=== PATIENT | male | born 1955 | race Caucasian/White ===

== ENCOUNTER 2018-01-22 10:46 | Emergency (ER) | payer BC ==
[2018-01-22 12:21] VITALS: BP 154/93
--- NOTE | 2018-01-22 12:38 | UC ---
Skin Complaint HPI - HPI Summary HPI Summary: 62 year old male with tick bite exposure . PT REMOVED A TICK FROM HIS LEFT UPPER ARM LAST ThursdayDecember. PT IS NOT SURE HOW LONG TICK WAS ATTACHED. TICK SITE IS RED AND ITCHY. DENIES BODY ACHES. CHILLS OR FEVER. his friends have Lyme so he is worried. tick on him for < 12 hours . noticed the area became itchy and red the past few days and slightly worsened. he is worried about infection and also allergy reaction. no SOB no wheeze. has not used OTC meds. [ End ] - History of Current Complaint Chief Complaint: UCSkin Time Seen by Provider: 01/22/18 12:19 Stated Complaint: TICK BITE Hx Obtained From: Patient Onset/Duration: Gradual Onset Timing: Constant Pain Intensity: 0 Aggravating Factor(s): Nothing Alleviating Factor(s): Nothing Related History: Insect Bite/Sting - Allergy/Home Medications Allergies/Adverse Reactions: Allergies Allergy/AdvReac Type Severity Reaction Status Date / Time No Known Allergies Allergy Verified 01/22/18 12:11 Home Medications: Home Medications Calcium Carbonate [Calcium] 500 mg PO DAILY 01/22/18 [History Confirmed 01/22/18 ] Cholecalciferol TAB* [Vitamin D TAB*] 1,000 unit PO DAILY 01/22/18 [History Confirmed 01/22/18] Multivitamin [Multivitamins] 1 cap PO DAILY 01/22/18 [History Confirmed 01/22/18 ] Simvastatin [Zocor] 20 mg PO DAILY 01/22/18 [History Confirmed 01/22/18] Review of Systems Constitutional: Negative Skin: Other - redness All Other Systems Reviewed And Are Negative: Yes PMH/Surg Hx/FS Hx/Imm Hx Previously Healthy: Yes Endocrine History: Dyslipidemia - Surgical History Surgical History: None - Social History Occupation: Employed Full-time Lives: With Family Alcohol Use: Daily Alcohol Amount: COUPLE BEERS AT NIGHT Substance Use Type: None Smoking Status (MU): Never Smoked Tobacco Physical Exam Triage Information Reviewed: Yes Appearance: Well-Appearing, No Pain Distress, Well-Nourished Vital Signs: Initial Vital Signs Temp 98.6 F 01/22/18 12:12 Pulse 71 01/22/18 12:12 Resp 16 01/22/18 12:12 BP 154/93 01/22/18 12:12 Pulse Ox 100 01/22/18 12:12 Vital Signs Reviewed: Yes Eye Exam: Normal ENT Exam: Normal Dental Exam: Normal Neck exam: Normal Neck: Positive: 1 Respiratory Exam: Normal Cardiovascular Exam: Normal Musculoskeletal Exam: Normal Neurological Exam: Normal Psychological Exam: Normal Skin Exam: Normal Skin: Positive: Other - right posterior upper extemity caudal to the axilla with area of raised redness. no EM. no streaking. center with insect bite evident no tick or insect present. area of elevated redness 2x2 cm. no streaking. no bruising. Course/Dx - Course Course Of Treatment: appears to be possible to be allergic reaction from the bite with the raised red hive like area. -- he will use OTC meds for this. he has concern for skin infection and hypersensitive to lyme and asking to be treated. for the much stronger possibility that this is not EM / Lyme will treat as bacterial skin infection and to ensure no concern for lyme use doxy. he is aware of SE like potential for photosensitivity rash and will dress accordingly. RTO if any concerns - Differential Diagnoses - Skin Complaint Differential Diagnoses: Tick Born Illness - Diagnoses Provider Diagnoses: 1. Tick bite. 2. elevated blood pressure Discharge - Sign-Out/Discharge Documenting (check all that apply): Discharge/Admit/Transfer - Discharge Plan Condition: Good Disposition: HOME Prescriptions: Doxycycline Hyclate 100 mg PO BID 10 Days #20 tablet Patient Education Materials: Tick Bite (ED), Cellulitis (ED) Referrals: El Grier MD [Primary Care Provider] - 4 Days Additional Instructions: As we discussed you can use topical steroids and antihistamines for the itch as well. If you have any concerns for Lyme please seek medical attn or testing with your primary care physician - Billing Disposition and Condition Condition: GOOD Disposition: HOME
== END 2018-01-22 12:55 | disposition home or self-care (01) ==
LOC: UCCORT 10:46
DX: S40.862A Insect bite (nonvenomous) of left upper arm, initial encounter (principal); W57.XXXA Bitten or stung by nonvenomous insect and other nonvenomous arthropods, initial encounter; Y93.9 Activity, unspecified; Y92.9 Unspecified place or not applicable; R03.0 Elevated blood-pressure reading, without diagnosis of hypertension; E78.5 Hyperlipidemia, unspecified
CPT/HCPCS: 99202; G0463

== ENCOUNTER 2019-08-05 09:25 | Emergency (ER) | payer BC ==
--- OUTSIDE RECORDS SUMMARY | 2019-08-05 09:50 | XMS REPORT | Continuity of Care Document ---
:1955 External Reference #:[id number] Author Name El Grier (transmitted by agent of provider Tereza Laboy) Address [address] [place] [address] Problems Description No Information Available Social History Type Date Description Comments Sex Unknown Tobacco Use Start: Unknown Never Smoked Cigarettes ETOH Use Currently consumes alcohol ETOH Use Consumes 4 beers per day Recreational Drug Use Denies Drug Use Tobacco Use Start: Unknown Patient has never smoked Smoking Status Reviewed: 11/06/17 Patient has never smoked Seat Belt/Car Seat Always uses seat belt Allergies, Adverse Reactions, Alerts Description No Known Drug Allergies Medications Active Medications SIG Qnty Indications Ordering Provider Date Simvastatin 1 by mouth 90tabs El Grier 04/07/2018 40mg every day Tablets Calcium 600+D High 1 by mouth 100tabs M85.80 El Grier 12/16/2016 Potency twice a day [id number] Tablets Vitamin D High 1 by mouth 100caps M85.80 El Grier 12/16/2016 Potency every day 1000Unit Capsules Multi For Him 50+ daily Unknown Tablets Immunizations CPT Code Status Date Vaccine Lot # [id number] Given 05/31/2019 Influenza Virus Vaccine, Quadrivalent, Split, Preservative Free 52234 Given 05/31/2019 Influenza Virus Vaccine, Quadrivalent, Split, Preservative Free 17392 Given 11/11/2016 Pneumococcal Conjugate Vaccine 13 Valent For Intramuscular Use 41552 Given 04/06/[address] [place] [address] Given 04/06/2012 Tetanus,Diphtheria,Adut/Adol Pertussis Vital Signs Date Vital Result Comment 06/14/2019 12:03pm BP Systolic 146 mmHg BP Diastolic 82 mmHg Heart Rate 88 /min Respiratory Rate 16 /min Height 71.5 inches 5'11.50" Weight 218.00 lb BMI (Body Mass Index) 30.0 kg/m2 O2 % BldC Oximetry 97 % 05/31/2019 11:29am BP Systolic 160 mmHg BP Diastolic 80 mmHg Heart Rate 99 /min Height 70.75 inches 5'10.75" Weight 212.00 lb BMI (Body Mass Index) 29.8 kg/m2 O2 % BldC Oximetry 98 % Results Test Date Facility Test Result H/L Range Note Autoimmune 06/02/2019 [facility] Loli Screen, Negative Negative [address] [facility] [place] [address] [phone] Liver Kidney Microsomal (LKM-1) AB (Igg) <=20.0 U <=20.0 2 Mitochondrial AB Screen Negative Negative Actin (Smooth Muscle) Antibody (Igg) <20 U <20 3 Hepatitis 06/02/2019 [facility] Hepatitis A NON-REACTIVE Normal Non -Reactive 4 Panel, [address] [place] [place] [address] W/Reflex To [phone] [facility] Hepatitis B Surface Antigen NON-REACTIVE Normal Non-Reactive Hepatitis B Core Antibody (Igm) NON-REACTIVE Normal Non-Reactive Hepatitis C Antibody NON-REACTIVE Normal Non-Reactive Signal To Cut-Off 0.01 Normal <1.00 5 Laboratory test 06/02/2019 [facility] Enhanced PDF SEE IMAGE finding [address] [address] [id number] [phone] Lipid Panel 04/01/2019 Old DO Not Use [facility] Cholesterol 195 mg/dL < [address] [place], [place] [id number] [phone] HDL Cholesterol 73 mg/dL >40 Cholesterol/HDL Ratio 2.7 CALC <5.0 LDL Chol,Calculated 107 mg/dL High 0-100 7 Triglycerides 63 mg/dL <150 Non-HDL Cholesterol 122 mg/dL <130 8 General Health Panel 04/01/2019 Old DO Not Use [facility] TSH 1.49 mIU/L 0.40-4.[address] [facility] [address] [place] [address] [phone] T4,Free 1.2 ng/dL 0.8-1.8 CBC W/ Diff & PLT 04/01/2019 Old DO Not Use [facility] WBC 6.4 thous/L 3.8-10.8 [address] [facility] [place] [address] [phone] RBC 4.87 mill/L 4.20-5.80 Hemoglobin 15.5 g/dL 13.2-17.1 Hematocrit 46.8 % 38.5-50.0 MCV 96.1 FL 80.0-100.0 MCH 31.8 pg 27.0-33.0 MCHC 33.1 g/dL 32.0-36.0 RDW 12.3 % 11.0-15.0 Platelet Count 235 thous/L 140-400 MPV 10.2 FL 7.5-12.5 Neutrophils,Absolute 4300 cells/L 5928-2879 Bands,Absolute PENDING Metamyelocytes,Absolute PENDING Myelocytes,Absolute PENDING Promyelocytes,Absolute PENDING Lymphocytes,Absolute 1350 cells/L 850-3900 Monocytes,Absolute 530 cells/L 200-950 Eosinophils,Absolute 170 cells/L 15-500 Basophils,Absolute 10 cells/L 0-200 Blast Cells,Absolute PENDING Nucleated RBC,Absolute PENDING Total Neutrophils,% 67.7 % 40-75 Bands,% PENDING Metamyelocytes,% PENDING Myelocytes,% PENDING Promyelocytes,% PENDING Total Lymphocytes,% 21.1 % 12-47 Reactive Lymphocytes PENDING Monocytes,% 8.3 % 4-12 Eosinophils,% 2.7 % 0-4 Basophils,% 0.2 % 0-1 9 Blasts,% PENDING Nucleated RBC PENDING Comment PENDING CMP W/GFR 04/01/2019 Old DO Not Use [facility] Sodium 137 mmol/L 135-[address] [place] [address] [phone] Potassium 4.8 mmol/L 3.5-5.3 Chloride 101 mmol/L 98-110 Carbon Dioxide 28 mmol/L 20-32 10 Calcium 9.9 mg/dL 8.6-10.3 Alkaline Phosphatase 101 U/L 40-115 Ast 36 U/L High 10-35 Alt 81 U/L High 9-46 Bilirubin,Total 0.7 mg/dL 0.2-1.2 Glucose 106 mg/dL High 65-99 11 Urea Nitrogen (BUN) 17 mg/dL 7-25 Creatinine 0.85 mg/dL 0.70-1.25 12 BUN/Creatinine Ratio 19.9 6-22 Protein,Total 7.1 g/dL 6.1-8.1 Albumin 4.8 g/dL 3.6-5.1 Globulin,Calculated 2.3 g/dL 1.9-3.7 A/G Ratio 2.0 1.0-2.5 Egfr Non-Afr. Citizen Of [place] 93 ML/MIN/1.73M2 > Or = 60 Egfr 107 ML/MIN/1.73M2 > Or = 60 Laboratory test 04/01/2019 Old DO Not Use [facility] Esr,Westergren 2 MM/HR 0-[address] [place], [place] [address] [phone] Uric Acid 6.3 mg/dL 4.0-8.0 13 Rheumatoid Factor 04/01/2019 Old DO Not Use [facility] Rheumatoid Factor <5 U <=6 (Iga,Igg,Igm) [address] (Igg) [place] [address] [phone] Rheumatoid Factor (Iga) <5 U <=6 Rheumatoid Factor (Igm) <5 U <=6 Laboratory test 04/01/2019 Old DO Not Use [facility] PSA,Total 0.7 NG/ML < Or = 4.0 [address] [place] [address] [phone] Testosterone,Total,MS 403 ng/dL 250-1100 15 1 LOLI IFA is a first line screen for detecting the presence of up to approximately 150 autoantibodies in various autoimmune diseases. A negative LOLI IFA result suggests LOLI-associated autoimmune disease is not present at this time, but is not definitive. If there is high clinical suspicion for Sjogren's Syndrome, testing for anti-SS-A/Ro antibody should be considered. Anti-Lorie-1 antibody should be considered for clinically suspected inflammatory myopathies. AC-0: Negative International Consensus on LOLI Patterns https://doi.org/10.1515/thlq-0293-5779 For additional information, please refer to http://education.[employer]/faq/QYH541 (This link is being provided for informational/ educational purposes only.) 2 Reference Range: <=20.0 Negative 20.1-24.9 Equivocal >=25.0 Positive Anti-liver/kidney microsomal antibodies (Anti-LKM-1) were previously tested by indirect immunofluorescence (IF) using rodent liver/kidney substrate. Identification of a specific antibody target as cytochrome P450 IID6 has led to the current recombinant based STELLA. Antibodies to this cytochrome are present in approximately 70% of patients with autoimmune hepatitis type 2. This antibody is also present in approximately 10% of patients with hepatitis C infection. 3 Reference Range: <20 U: Negative >or=20 U: Positive Antibodies recognizing actin are the main component of smooth muscle antibodies associated with auto- immune liver disease. Actin antibodies are found in approximately 75% of patients with autoimmune hepatitis (AIH) type 1, approximately 65% of patients with autoimmune cholangitis, approximately 30% of patients with primary biliary cirrhosis and approximately 2% of healthy controls. High values are closely correlated with AIH type 1. 4 For additional information, please refer to http://Y[employer]/faq/CYR942 (This link is being provided for informational/ educational purposes only.) 5 HCV antibody was non-reactive. There is no laboratory evidence of HCV infection. In most cases, no further action is required. However, if recent HCV exposure is suspected, a test for HCV RNA (test code 46535) is suggested. For additional information please refer to http://Yab[employer]/faq/ZLW37x5 (This link is being provided for informational/ educational purposes only.) 6 FASTING 7 LDL-C is now calculated using the Torsten-Portillo calculation, which is a validated novel method providing better accuracy than the Friedewald equation in the estimation of LDL-C. Torsten SS et al.CODI.2013;310(19):0870-5454 Desirable range <100 mg/dL for primary prevention; <70 mg/dL for patients with CHD or diabetic patients with >or= 2 CHD risk factors. 8 For patients with diabetes plus 1 major ASCVD risk factor, treating to a non-HDL-C goal of <100 mg/dL (LDL-C of <70 mg/ dL) is considered a therapeutic option. 9 Relative blood cell counts (%) should be compared with absolute cell counts (cells/mcL). Relative counts may not be clinically meaningful if the absolute count of one or more cell type is decreased. Reference ranges for relative cell counts derived from: A Manual of Laboratory and Diagnostics Tests, 9th Ed, Marybeth Nathan & Covarr[employer]ias, 2015. Pediatric Reference Intervals, 7th Ed, [facility], 2011. 10 Reference range for high altitude clients: 18-30 mmol/L 11 GLUCOSE REFERENCE RANGE BASED ON FASTING SPECIMEN. 12 The upper reference limit for Creatinine is approximately 13% higher for people identified as -Citizen Of [place]. 13 Therapeutic target for gout patients: <6.0 mg/dL 14 The total PSA value from this assay system is standardized against the WHO standard. The test result will be approximately 20% lower when compared to the equimolar-standardized total PSA (Mack Patricio). Comparison of serial PSA results should be interpreted with this fact in mind. This test was performed using the Siemens chemiluminescent method. Values obtained from different assay methods be used interchangeably. PSA levels, regardless of value, should not be interpreted as absolute evidence of the presence or absence of disease. 15 Men with clinically significant hypogonadal symptoms and testosterone values repeatedly in the range of the 200-300 ng/dL or less, may benefit from testosterone treatment after adequate risk and benefits counseling. For additional information, please refer to http://education.[employer]/faq/ OvgumIpqjmgdojclrIAIAMCURZ066 (This link is being provided for informational/ educational purposes only.) This test was developed and its analytical performance characteristics have been determined by [employer] [place], [place]. It has not been cleared or approved by the U.S. Food and Drug Administration. This assay has been validated pursuant to the CLIA regulations and is used for clinical purposes. Procedures Date Code Description Status 05/17/2019 47291 Non-Invcorrotid/Comp /Bilat Study Completed 05/16/2019 94404 Echocardiography Completed 04/01/2019 54795 Spirometry Graphic Record/Max Voluntary Vent Completed 04/01/2019 11042 PVR-Atrerial Study Completed 04/01/2019 00018 EKG-Tracing & Report Completed 03/28/2019 42759 Holter Monitor Office Completed 11/27/2016 [id number] Bone Mineral Density Test Completed 06/24/2010 55606690 Colonoscopy Completed Medical Devices Description No Information Available Encounters Type Date Location Provider Dx Diagnosis Office Visit 05/31/2019 11:30a Main Office Mahin Grierl K73.9 Chronic hepatitis, unspecified I65.23 Occlusion and stenosis of bilateral carotid arteries I34.0 Nonrheumatic mitral (valve) insufficiency E78.49 Other hyperlipidemia R73.01 Impaired fasting glucose I11.9 Hypertensive heart disease without heart failure N40.0 Benign prostatic hyperplasia without lower urinry tract symp R01.1 Cardiac murmur, unspecified Z23 Encounter for immunization Office Visit 02/02/2019 11:45a Main Office Mahin Grierl I65.23 Occlusion and stenosis of bilateral carotid arteries I34.0 Nonrheumatic mitral (valve) insufficiency E78.5 Hyperlipidemia, unspecified R73.01 Impaired fasting glucose M15.9 Polyosteoarthritis, unspecified R53.82 Chronic fatigue, unspecified I11.9 Hypertensive heart disease without heart failure N40.0 Benign prostatic hyperplasia without lower urinry tract symp Assessments Date Code Description Provider 05/31/2019 K73.9 Chronic hepatitis, unspecified Marvel, El 05/31/2019 I65.23 Occlusion and stenosis of bilateral carotid arteries Marvel , El 05/31/2019 I34.0 Nonrheumatic mitral (valve) insufficiency Gaangel, El 05/31/2019 E78.49 Other hyperlipidemia Marvel, El 05/31/2019 R73.01 Impaired fasting glucose Marvel, El 05/31/2019 I11.9 Hypertensive heart disease without heart failure Gauss, El 05/31/2019 N40.0 Benign prostatic hyperplasia without lower urinary Gauss, El tract symptoms 05/31/2019 R01.1 Cardiac murmur, unspecified Gauss, El 05/31/2019 Z23 Encounter for immunization Marvel, El 05/17/2019 I65.23 Occlusion and stenosis of bilateral carotid arteries Gaangel , El 05/16/2019 I34.0 Nonrheumatic mitral (valve) insufficiency Gauss, El 04/01/2019 E78.2 Mixed hyperlipidemia Marvel, El 04/01/2019 I73.9 Peripheral vascular disease, unspecified Gauss, El 04/01/2019 R06.02 Shortness of breath Gaangel, El 04/01/2019 J44.9 Chronic obstructive pulmonary disease, unspecified Gauss, El 04/01/2019 R05 Cough Gauss El 03/28/2019 R00.2 Palpitations Mahin Grierl 02/02/2019 I65.23 Occlusion and stenosis of bilateral carotid arteries Mahin Grierl 02/02/2019 I34.0 Nonrheumatic mitral (valve) insufficiency Mahin Grierl 02/02/2019 E78.5 Hyperlipidemia, unspecified Marvel, El 02/02/2019 R73.01 Impaired fasting glucose Mahin Grierl 02/02/2019 M15.9 Polyosteoarthritis, unspecified Marvel, El 02/02/2019 R53.82 Chronic fatigue, unspecified Mahin Grierl 02/02/2019 I11.9 Hypertensive heart disease without heart failure Mahin Grierl 02/02/2019 N40.0 Benign prostatic hyperplasia without lower urinary El Grier tract symptoms Plan of Treatment 05/31/2019 - Mahin GrierK73.9 Chronic hepatitis, rarvtwkcfvtD34.23 Occlusion and stenosis of bilateral carotid arteriesComments:Discussed role of life style choices in dietary fats and exercise plays on evolution of [place] tribe disease and importance of controlling cholesterol. Medications role and side effects in disease progression prevention discussed and need for compliance with prescribed treatment. Follow up testing for progression such as ultrasound surveillance ckrsplffQ20.0 Nonrheumatic mitral (valve) insufficiencyComments: Issues of symptoms and aggravating lifestyle factors such as sleep, stress and dietary choices discussed. Symptoms and medication treatment and compliance and side effects discussed as needed. Need forSBE prophalaxis with antibiotics addressed and discussed where indicated. Follow up Echocardiogram as required.Discussed valvular pathology and need if indicated for antibiotic prophylaxis to prevent S.B.E. Medication compliance and side effects issues addressed. Follow up echocardiogram as warranted.Results of 2D echo and other testing reviewed and discussed with patient possible etiologies, progression prognosis and need for prophylactic antibiotics before dental procedures if warranted for S.B.E. prophylaxis. Routine follow up/ surveillance planned.E78.49 Other [id number] Impaired fasting glucoseComments:diet and pbwdmrzQ99.9 Hypertensive heart disease without heart failureComments:CONT. TO MONITOR BP, CONT. LOW SALT DIET Discussed lifestyle factors and role of diet and excerns incontrol of disease and treatment goals and targets. Medication side effects and compliance issues addressed as indicated. The importance of ongoing self monitoring of BP and the symptoms of complications such as TIA, CVA and AMI reviewed. The importance of reporting changes in between visits and side effects stressed. monitoring of patient provided BP checks and laboratory tests related to medicationreviewed. Discussed lifestyle factors and role of diet and excerns in control of disease and treatment goals and targets. Medication side effects and compliance issues addressed as indicated. The importance of ongoing self monitoring of BP and the symptoms of complications such as TIA, CVA and AMI reviewed. The importance of reporting changes in between visits and side effects stressed. monitoring of patient provided BP checks and laboratory tests related to medication reviewed.N40.0 Benign prostatic hyperplasia without lower urinary tract symptomsComments:yearly digital examyearly psaSymptoms and signs reviewed and therapy such as medication , vitamins, diet supplements and their risks and benefits discussed. Symptom progression and referral to urology as appropriate for symptom progression and severity discussed and ordered. The importance of medication compliance when appropriate discussed and the effects of other medications such as antihistamines and OTC cold medicines considered and discussed with patient. Lab work as appropriate and follow up symptomatically and with JASE yearly arrangedyearly digital examyearly psaSymptoms and signs reviewed and therapy such as medication, vitamins, diet supplements and their risks and benefits discussed. Symptom progression and referral to urology as appropriate for symptom progression and severity discussedand ordered. The importance of medication compliance when appropriate discussed and the effects of other medications such as antihistamines and OTC cold medicines considered and discussed with patient.Lab work as appropriate and follow up symptomatically and with JASE yearly trtdynisY26.1 Cardiac murmur, unspecifiedComments:2D [id number] Encounter for immunization Functional Status Description No Information Available Mental Status Description No Information Available Referrals Description No Information Available
--- OUTSIDE RECORDS SUMMARY | 2019-08-05 09:50 | XMS REPORT | Continuity of Care Document ---
:1955 External Reference #:[id number] Author Name El Grier (transmitted by agent of provider Mami Baig) Address [address] [place] [address] Problems Description No Information Available Social History [...] El Grier 12/16/2016 Potency twice a day [id number] Tablets Vitamin D High 1 by mouth 100caps M85.80 El Grier 12/16/2016 Potency every day 1000Unit Capsules Multi For Him 50+ daily Unknown Tablets Immunizations CPT Code Status Date Vaccine Lot # 27688 Given 05/31/2019 Influenza Virus Vaccine, Quadrivalent, Split, Preservative Free 63616 Given 05/31/2019 Influenza Virus Vaccine, Quadrivalent, Split, Preservative Free 66002 Given 11/11/2016 Pneumococcal Conjugate Vaccine 13 Valent For Intramuscular Use 26069 Given 04/06/2012 [place] [address] Given 04/06/2012 Tetanus,Diphtheria,Adut/Adol Pertussis Vital Signs Date [...] Result H/L Range Note Autoimmune 06/02/2019 [facility] Loli Screen, Negative Negative [address] [place] [address] [phone] Liver Kidney Microsomal (LKM-1) AB (Igg) <=20.0 U <=20.0 2 Mitochondrial AB Screen Negative Negative Actin (Smooth Muscle) Antibody (Igg) <20 U <20 3 Hepatitis 06/02/2019 [facility] Hepatitis A NON-REACTIVE Normal Non -Reactive 4 Panel, [address] [place] [address] W/Reflex To [phone] Confi Hepatitis B Surface Antigen NON-REACTIVE Normal Non-Reactive Hepatitis B Core Antibody (Igm) NON-REACTIVE Normal Non-Reactive Hepatitis C Antibody NON-REACTIVE Normal Non-Reactive Signal To Cut-Off 0.01 Normal <1.00 5 Laboratory test 06/02/2019 [facility] Enhanced PDF SEE IMAGE finding [address] [place] [address] [id number] [phone] Lipid Panel 04/01/2019 Old DO Not Use [facility] Cholesterol 195 mg/dL < [address] [place], [place] [id number] [phone] HDL Cholesterol 73 mg/dL >40 Cholesterol/HDL Ratio 2.7 CALC <5.0 LDL Chol,Calculated 107 mg/dL High 0-100 7 Triglycerides 63 mg/dL <150 Non-HDL Cholesterol 122 mg/dL <130 8 General Health Panel 04/01/2019 Old DO Not Use [facility] TSH 1.49 mIU/L 0.40-4.[address] [facility] [address] [place] [address] [phone] T4,Free 1.2 ng/dL 0.8-1.8 CBC W/ Diff & PLT 04/01/2019 Old DO Not Use [facility] WBC 6.4 thous/L 3.8-10.8 [address] [facility] [place] [address] [phone] RBC 4.87 mill/L 4.20-5.80 Hemoglobin 15.5 g/dL 13.2-17.1 Hematocrit 46.8 % 38.5-50.0 MCV 96.1 FL 80.0-100.0 MCH 31.8 pg 27.0-33.0 MCHC 33.1 g/dL 32.0-36.0 RDW 12.3 % 11.0-15.0 Platelet Count 235 thous/L 140-400 MPV 10.2 FL 7.5-12.5 Neutrophils,Absolute 4300 cells/L [phone] Bands,Absolute PENDING Metamyelocytes,Absolute PENDING Myelocytes,Absolute PENDING Promyelocytes,Absolute [...] [facility] Sodium 137 mmol/L 135-[address] [place] [address] [phone] Potassium 4.8 mmol/L 3.5-5.3 Chloride 101 mmol/L [...] 1.9-3.7 A/G Ratio 2.0 1.0-2.5 Egfr Non-Afr. Cuban 93 ML/MIN/1.73M2 > Or = 60 Egfr 107 ML/MIN/1.73M2 > Or = 60 Laboratory test 04/01/2019 Old DO Not Use [facility] Esr,Westergren 2 MM/HR 0-[address] [place], [place] [id number] [phone] Uric Acid 6.3 mg/dL 4.0-8.0 13 Rheumatoid Factor 04/01/2019 Old DO Not Use [facility] Rheumatoid Factor <5 U <=6 (Iga,Igg,Igm) [address] (Igg) [place] [address] [phone] Rheumatoid Factor (Iga) <5 U <=6 Rheumatoid Factor (Igm) <5 U <=6 Laboratory test 04/01/2019 Old DO Not Use [facility] PSA,Total 0.7 NG/ML < Or = 4.[address] [place] [address] [phone] Testosterone,Total,MS 403 ng/dL 250-1100 15 1 LOLI [...] AC-0: Negative International Consensus on LOLI Patterns https://doi.org/10.1515/gowt-3879-1234 For additional information, please refer to http://education.YouChe.com/faq/RLR546 (This link is being provided for informational/ [...] 4 For additional information, please refer to http://Elimi.Netviewer/faq/VTU112 (This link is being provided for informational/ educational purposes only.) 5 HCV antibody was non-reactive. There is no laboratory evidence of HCV infection. In most cases, no further action is required. However, if recent HCV exposure is suspected, a test for HCV RNA (test code 83219) is suggested. For additional information please refer to http://Elimi.Netviewer/faq/RIF89p2 (This link is being provided for informational/ educational purposes only.) 6 FASTING 7 LDL-C is now calculated using the Torsten-Portillo calculation, which is a validated novel method providing better accuracy than the Friedewald equation in the estimation of LDL-C. Torsten SS et al.CODI.2013;310(19):7488-7398 Desirable range <100 mg/dL for primary prevention; [...] Covarrubias, 2015. Pediatric Reference Intervals, 7th Ed, [facility] [employer], 2011. 10 Reference range for high altitude clients: 18-30 mmol/L 11 GLUCOSE REFERENCE RANGE BASED ON FASTING SPECIMEN. 12 The upper reference limit for Creatinine is approximately 13% higher for people identified as -Cuban. 13 Therapeutic target for gout patients: <6.0 [...] counseling. For additional information, please refer to http://education.Rooster Teeth.Cinepapaya/faq/ NutzcSviefazrlxgsTBGOUSQNF079 (This link is being provided for informational/ educational purposes only.) This test was developed and its analytical performance characteristics have been determined by [place] [place]. It has not been cleared or approved by the U.S. Food and Drug Administration. This assay has been validated pursuant to the CLIA regulations and is used for clinical purposes. Procedures Date Code Description Status 05/17/2019 18550 Non-Invcorrotid/Comp /Bilat Study Completed 05/16/2019 55264 Echocardiography Completed 04/01/2019 42529 Spirometry Graphic Record/Max Voluntary Vent Completed 04/01/2019 83297 PVR-Atrerial Study Completed 04/01/2019 62987 EKG-Tracing & Report Completed 03/28/2019 67038 Holter Monitor Office Completed 11/27/2016 [id number] Bone Mineral Density Test Completed 06/24/2010 16482348 Colonoscopy Completed Medical Devices Description No Information Available Encounters Type Date Location Provider Dx Diagnosis Office Visit 06/14/2019 12:00p Main Office El Grier K73.9 Chronic hepatitis, unspecified Office Visit 05/31/2019 11:30a Main Office El Grier K73.9 Chronic hepatitis, unspecified I65.23 Occlusion and stenosis of bilateral carotid arteries I34.0 Nonrheumatic mitral (valve) insufficiency E78.49 Other hyperlipidemia R73.01 Impaired fasting glucose I11.9 Hypertensive heart disease without heart failure N40.0 Benign prostatic hyperplasia without lower urinry tract symp R01.1 Cardiac murmur, unspecified Z23 Encounter for immunization Office Visit 02/02/2019 11:45a Main Office El Grier I65.23 Occlusion and stenosis of bilateral carotid arteries I34.0 Nonrheumatic mitral (valve) insufficiency E78.5 Hyperlipidemia, unspecified R73.01 Impaired fasting glucose M15.9 Polyosteoarthritis, unspecified R53.82 Chronic fatigue, unspecified I11.9 Hypertensive heart disease without heart failure N40.0 Benign prostatic hyperplasia without lower urinry tract symp Assessments Date Code Description Provider 06/14/2019 K73.9 Chronic hepatitis, unspecified Gauss, Le 05/31/2019 K73.9 Chronic hepatitis, unspecified Gauss, El 05/31/2019 I65.23 Occlusion and stenosis of bilateral carotid arteries Gaangel , El 05/31/2019 I34.0 Nonrheumatic mitral (valve) insufficiency Gauss, El 05/31/2019 E78.49 Other hyperlipidemia Gaangel, El 05/31/2019 R73.01 Impaired fasting glucose Gaangel, El 05/31/2019 I11.9 Hypertensive heart disease without heart failure Gauss, El 05/31/2019 N40.0 Benign prostatic hyperplasia without lower urinary Gauss, El tract symptoms 05/31/2019 R01.1 Cardiac murmur, unspecified Gauss, El 05/31/2019 Z23 Encounter for immunization Gaangel, El 05/17/2019 I65.23 Occlusion and stenosis of bilateral carotid arteries Gauss , El 05/16/2019 I34.0 Nonrheumatic mitral (valve) insufficiency Gauss, El 04/01/2019 E78.2 Mixed hyperlipidemia Gauss, El 04/01/2019 I73.9 Peripheral vascular disease, unspecified Gauss, El 04/01/2019 R06.02 Shortness of breath [facility] 04/01/2019 J44.9 Chronic obstructive pulmonary disease, unspecified [facility] 04/01/2019 R05 Cough [facility] 03/28/2019 R00.2 Palpitations [facility] 02/02/2019 I65.23 Occlusion and stenosis of bilateral carotid arteries [facility] 02/02/2019 I34.0 [facility]rheumatic [facility]valve) [facility] E78.5 Hyperlipidemia, unspecified [facility] 02/02/2019 R73.01 Impaired fasting glucose [facility] 02/02/2019 M15.9 Polyosteoarthritis, unspecified [facility] 02/02[facility]2019 R53.82 Chronic fatigue, unspecified [facility] 02/02/2019 I11.9 Hypertensive heart disease without heart failure [facility] 02/02/2019 N40.0 Benign prostatic hyperplasia without lower urinary El Grier tract symptoms Plan of Treatment Future Appointment(s):07/08/2019 8:00 am - Nurse at Main Mtehoo9807/18/2019 10: 45 am - El Grier at Main Xkifmi0606/14/2019 - El GrierK73.9 Chronic hepatitis, unspecified Functional Status Description No Information Available Mental Status Description No Information Available Referrals Description No Information Available
--- NOTE | 2019-08-05 11:09 | UC ---
Lower Extremity/Ankle HPI - HPI Summary HPI Summary: Pt presents with c/o firm, tender, red, warm to touch "lump" on posterior right calf. Pt has hx of varicose veins at same area. Denies recent travel, hx of clotting disorder, injury, or trauma to the area. - History of Current Complaint Chief Complaint: UCSkin Stated Complaint: LT LEG SKIN CONCERN Time Seen by Provider: 08/05/19 10:08 Hx Obtained From: Patient Onset/Duration: Gradual Onset, Lasting Days, Still Present Severity Initially: Mild Severity Currently: Moderate Pain Intensity: 5 Aggravating Factor(s): Standing, Ambulation Alleviating Factor(s): Rest, Elevation Able to Bear Weight: Yes - Risk Factors Gout Risk Factors: Age Over 40, Male DVT Risk Factors: Negative Septic Arthritis Risk Factor: Negative - Allergies/Home Medications Allergies/Adverse Reactions: Allergies Allergy/AdvReac Type Severity Reaction Status Date / Time No Known Allergies Allergy Verified 08/05/19 09:52 Home Medications: Home Medications Latanoprost [Xalatan] 2.5 ml OP DAILY 08/05/19 [History Confirmed 08/05/19] PMH/Surg Hx/FS Hx/Imm Hx Previously Healthy: Yes Endocrine History: Dyslipidemia - Surgical History Surgical History: None - Family History Known Family History: Positive: Cardiac Disease - Social History Occupation: Employed Full-time Lives: With Family Alcohol Use: Daily Alcohol Amount: COUPLE BEERS AT NIGHT Substance Use Type: None Smoking Status (MU): Never Smoked Tobacco Have You Smoked in the Last Year: No Review of Systems All Other Systems Reviewed And Are Negative: Yes Constitutional: Positive: Negative Skin: Positive: Other - erythematous, firm area circular right posterior calf ~ 4 cm in diameter Petechiae like area distal achilles right lower extremity ENT: Positive: Negative Respiratory: Positive: Negative Cardiovascular: Positive: Negative Gastrointestinal: Positive: Negative Motor: Positive: Negative Neurovascular: Positive: Negative Musculoskeletal: Positive: Edema - right claf, Myalgia Neurological: Positive: Negative Psychological: Positive: Negative Physical Exam Triage Information Reviewed: Yes Appearance: Well-Appearing Vital Signs: Initial Vital Signs Temp 98.9 F 08/05/19 09:53 Pulse 93 08/05/19 09:53 Resp 15 08/05/19 09:53 BP 164/90 08/05/19 09:53 Pulse Ox 100 08/05/19 09:53 Vital Signs Reviewed: Yes Eye Exam: Normal ENT: Positive: Hearing grossly normal Dental Exam: Normal Neck exam: Normal Respiratory: Positive: No respiratory distress Musculoskeletal: Positive: Edema @ - erythematous, firm area circular right posterior calf ~ 4 cm in diameter Petechiae like area distal achilles right lower extremi Neurological Exam: Normal Psychological Exam: Normal Skin Exam: Other - erythematous, firm area circular right posterior calf ~ 4 cm in diameter Petechiae like area distal achilles right lower extremi Diagnostics - Radiology No standard instances Radiology Interpretation Completed By: Radiologist - Truss Designer: Antoni Juares C ([id number]) Shot Lighter: VERONICA (VERONICA) Report Date: 11:55:00 Report Status: Final Start of Report Content = Patient Name: POLY WEATHERS Medical Record#: [id number] Ordering Physician: Cheri Vasquez DROP FORGER Acct.#: [id number] : 1955 Age: 63 Sex: M Location: [facility] Exam Date: 08/05/19 1050 ADM Status: REG ER Order Information: VL LOWER EXT VEINS RIGHT Accession Number: [id number] CPT: 22343 INDICATION: Palpable lump RIGHT posterior calf. Assess for DVT. COMPARISON : No relevant prior exams available on the [facility] PACS for comparison. TECHNIQUE: Stover scale, color Doppler, and spectral analysis of the deep veins of the RIGHT lower extremity. Vessel compression, phasicity, and augmentation assessed. REPORT: The RIGHT common femoral, great saphenous, profunda femoral, femoral, and popliteal veins are patent. Occlusive thrombosis at the intramuscular gastrocnemius veins and one of the paired posterior tibial veins of the calf as well as occlusive thrombosis of varicose veins at the posterior calf corresponding with the palpable lump and of the mid segment of the small saphenous vein. The paired peroneal veins of the calf are patent. Patency of the LEFT common femoral vein documented. IMPRESSION: #. DVT with occlusive thrombosis of one of the paired posterior tibial veins of the RIGHT calf. #. Superficial thrombosis involving varicosities in the posterior RIGHT calf corresponding with the palpable lump as well as the small saphenous vein. #. Occlusive thrombosis of a perforating RIGHT gastrocnemius veins. <Electronically signed by Antoni Juares MD in OV> 08/05/19 1151 Dictated By: Antoni Juares MD Dictated Date /Time: 08/05/19 114 Transcribed Date/Time: 08/05/191147 Copy to: CC:El Grier MD; Cheri Vasquez NP; Chelle Kerr MD Imaging - [facility] Imaging - [facility] [address] [place] [address] ph [phone]) ph [phone]) ph ([phone]) End of Report Content Lower Extremity Course/Dx - Course Course Of Treatment: I spoke with DR. Owusu and he recommended that I begin the pt on a "standard dose" of xaralto or eliquis. In consultation with Dr. Kerr and review of Up to date, I chose xaralto at 15 mg PO Q12h X 21 days. - Differential Dx/Diagnosis Differential Diagnosis/HQI/PQRI: Cellulitis, DVT, Phlebitis Provider Diagnosis: DVT of lower limb, acute Discharge ED - Sign-Out/Discharge Documenting (check all that apply): Patient Departure All imaging exams completed and their final reports reviewed: Yes - Discharge Plan Condition: Stable Disposition: HOME Prescriptions: Rivaroxaban TAB(*) [Xarelto 15 mg(*)] 15 mg PO Q12H #42 tab Patient Education Materials: Deep Vein Thrombosis (ED) Referrals: Gildardo Owusu MD [Medical Doctor] - As Soon As Possible El Grier MD [Primary Care Provider] - If Needed Additional Instructions: Please follow up with your PCP as needed and a Super[employer] as soon as possible. If your symptoms worsen, please go to the closest emergency room immediately. - Billing Disposition and Condition Condition: STABLE Disposition: Home
[2019-08-05 12:29] VITALS: BP 152/89
== END 2019-08-05 13:04 | disposition home or self-care (01) ==
LOC: UCCORT 09:25
DX: I82.4Z1 Acute embolism and thrombosis of unspecified deep veins of right distal lower extremity (principal)
CPT/HCPCS: 99212; G0463